=== PATIENT | male | born 1965 | race Caucasian/White ===

== ENCOUNTER 2018-12-01 21:03 | Observation (INO) | payer OTHER ==
--- NOTE | 2018-12-01 21:08 | ED Physician Documentation ---
General Adult - HISTORIAN Historian: patient - HPI Stated Complaint: alcoholism Chief Complaint: General Adult Onset: other (years has been drinking ) Timing: still present Severity: moderate Further Comments: yes (states he drinks whiskey daily. states he was driving to inpt treatment for alcohol and he was drinking whiskey on the way. He has had heart surgery last year.) Last known Well Code/Unknown Code: Unknown - ROS CONST: no problems - PAST HX Past History: AMI, COPD, hypertension Surgeries/Procedures: cardiac bypass Immunizations: UTD Allergies/Adverse Reactions: Allergies Allergy/AdvReac Type Severity Reaction Status Date / Time Penicillins Allergy Hives Verified 12/01/18 22:13 Home Medications: Ambulatory Orders Medication Instructions Recorded Aspirin EC [Ecotrin] 81 mg PO D 12/01/18 Atorvastatin Calcium 40 mg PO HS 12/01/18 Lamotrigine [Lamictal] 100 mg PO D 12/01/18 Metoprolol Tartrate [Lopressor] 25 mg PO D 12/01/18 Pantoprazole Sodium [Protonix] 40 mg PO 0700 12/01/18 Paroxetine HCl 20 mg PO DAILY 12/01/18 - SOCIAL HX Smoking History: cigarettes Alcohol Use: heavy Drug Use: none - FAMILY HX Family History: No - REVIEWED ASSESSMENTS Nursing Assessment Reviewed: Yes Vitals Reviewed: Yes Progress - Progress Progress: 2244: results discussed. Will plan on obs stay for lab and meds - is questioning medical coverage DG 2250: room obtained will hold for lab DG General Adult Physical Exam - PHYSICAL EXAM GENERAL APPEARANCE: no distress EENT: eye inspection normal, no signs of dehydration NECK: normal inspection RESPIRATORY: no resp distress, chest non-tender, breath sounds normal CVS: reg rate & rhythm, heart sounds normal, equal pulses, no murmur ABDOMEN: soft, normal bowel sounds, no distension SKIN: warm/dry, normal color EXTREMITIES: non-tender, normal range of motion, no edema NEURO: oriented X3 Discharge Clincal Impression: Alcohol abuse Condition: Stable Disposition: ADMITTED INPATIENT Decision to Admit: [id number] Date of Decison to Admit: 12/01/18 Decision Time: 22:52
[2018-12-01] MEDS ORDERED: THIAMINE HCL 100 MG, MULTIVIT INFUSN,ADULT 1,VIT K 10 ML, FOLIC ACID 5 MG in 0.9 % SODI... IV ONE (21:16)
[2018-12-01] MEDS ORDERED: THIAMINE HCL 200 MG/2 ML VIAL ONE (21:35)
[2018-12-01] MEDS ORDERED: MULTIVIT INFUSN,ADULT 1,VIT K 10 ML VIAL IV ONE (21:35)
[2018-12-01] MEDS ORDERED: 0.9 % SODIUM CHLORIDE 1,000 ML IV ONE (21:35)
[2018-12-01] MEDS ORDERED: FOLIC ACID 5 MG/1 ML ONE (21:35)
[2018-12-01 21:49] LABS: MEAN CORPUSCULAR HEMOGLOBIN 31.3 pg (28.0-34.0)
[2018-12-01 21:50] LABS: BASOPHILS % 0.4 (0.0-1.5); EOSINOPHILS % 1.7 % (0.0-6.8); MONOCYTES % 5.2 % (0.0-11.0); NEUTROPHILS # 2.8 # k/uL (1.4-7.7)
[2018-12-01 22:17] LABS: eGFR (Non-African) > 60
[2018-12-01] MEDS ORDERED: POTASSIUM CHLORIDE 20 MEQ TABLET.ER PO ONE (22:20)
[2018-12-01] MEDS ORDERED: POTASSIUM CHLORIDE 20 MEQ/NS 1,000 ML IV ONE (22:32)
[2018-12-01] MEDS: POTASSIUM CHLORIDE 20 MEQ/NS 1,000 ML IV SCH (22:49)
[2018-12-01] MEDS ORDERED: LORazepam 1 MG TABLET PO PRN (23:02)
--- NOTE | 2018-12-01 23:20 | History and Physical Report ---
History of Present Illnes - History of Present Illness Reason for Visit: hypokalemia and ETOH History of Present Illness: ETOH and hypokalemia - Past Medical History Cardiac: CAD, AL, Hyperlipidemia Gastrointestinal: GERD Psych: Addictions (ETOH) - Past Surgical History Past Surgical History: CABG - Past Social History Smoke: 1 pack per day Alcohol: Heavy (whiskey ) Drugs: None Lives: With Family Domestic Violence: Negative - Health Maintenance Health Maintenance: Cholesterol Influenza Vaccine: No Pneumonia Vaccine: No Resuscitation Status: Resusciation Status Resuscitation Status Full Code Review of Systems - Review of Systems Constitutional: negative: Fever, Chills, Sweats, Weakness Eyes: negative: pain ENT: negative: Ear Pain Respiratory: negative: Cough, Shortness of Breath Cardiovascular: negative: Chest Pain, Palpitations Gastrointestinal: negative: Nausea, Vomiting Genitourinary: negative: Dysuria Musculoskeletal: negative: Neck Pain Skin: negative: Rash Neurological: Weakness - Medications/Allergies Allergies/Adverse Reactions: Allergies Allergy/AdvReac Type Severity Reaction Status Date / Time Penicillins Allergy Hives Verified 12/01/18 22:13 Home Medications: Home Medications Aspirin EC [Ecotrin] 81 mg PO D 12/01/18 Atorvastatin Calcium 40 mg PO HS 12/01/18 Lamotrigine [Lamictal] 100 mg PO D 12/01/18 Metoprolol Tartrate [Lopressor] 25 mg PO D 12/01/18 Pantoprazole Sodium [Protonix] 40 mg PO 0700 12/01/18 Paroxetine HCl 20 mg PO DAILY 12/01/18 Current Inpatient Medications: Current Inpatient Medications Thiamine HCl 100 mg/ MULTIVIT INFUSN,ADULT 1,VIT K 10 ml/Folic Acid 5 mg/ Sodium Chloride 1,012 mls @ 1,000 drops/hr IV NOW ONE Stop: 12/02/18 12:26 Last Admin: 12/01/18 21:45 Dose: 1,000 drops/hr Potassium Chloride/Sodium Chloride (Potassium 20 Meq/Ns 1000 Ml) 1,000 mls @ 150 mls/hr IV Q10H OSMANY Last Admin: 12/01/18 22:49 Dose: 150 mls/hr Lorazepam (Ativan) 2 mg PO Q2 PRN PRN Reason: Alcohol Withdrawal Exam - Exam Vital Signs: Vital Signs (72 hours) 12/01/18 12/01/18 21:03 23:06 Temperature 97.6 F 98.0 F Pulse Rate [ 73 65 Pulse ox] Respiratory 14 14 Rate Blood Pressure 98/64 102/58 [Right Arm] O2 Sat by Pulse 95 97 Oximetry General: Alert, Oriented to Place, Cooperative HEENT: Atraumatic, PERRLA, Mouth Mucous membr. moist/[place] Neck: Normal Range of Motion. No: Stridor Lungs: Clear to auscultation, Normal air movement, Speaks full Sentences Cardiovascular: Regular rate Abdomen: Normal bowel sounds, No tenderness Integumentary: Normal Extremities: No clubbing Neurological: Other (stubling gait due to ETOH) Psych/Mental Status: Appropriate Affect - Laboratory Results Laboratory Results: Laboratory Results 12/01/18 12/01/18 21:31 21:31 WBC 6.30 RBC 3.91 Hgb 12.2 Hct 36.5 L MCV 94.0 MCH 31.3 MCHC 33.5 RDW 14.0 Plt Count 206 Neut % (Auto) 44.7 Lymph % (Auto) 48.0 [place] % (Auto) 5.2 Eos % (Auto) 1.7 Baso % (Auto) 0.4 Neut # (Auto) 2.8 Lymph # (Auto) 3.0 [place] # (Auto) 0.3 Eos # (Auto) 0.1 Baso # (Auto) 0.0 Sodium 143 Potassium 2.5 L* Chloride 105 Carbon Dioxide 31 H BUN 6 L Creatinine 0.80 Estimated Creat Clear 94 Est GFR ( Amer) > 60 Est GFR (Non-Af Amer) > 60 Glucose 89 Calcium 8.1 L Total Bilirubin 1.0 AST 63 H ALT 25 Alkaline Phosphatase 88 Total Protein 6.6 Albumin 4.0 Ethyl Alcohol 340.8 H VTE Assessment - RISK FACTOR SCORE VTE RISK FACTOR SCORES: AGE 40-60 YEARS - RISK VTE LOW RISK: SCORE OF 1 OR LESS (RISK PROXIMAL DVT 0.4%) NO PROPHYLAXIS NEEDED
[2018-12-01] MEDS ORDERED: NICOTINE 21mg 1 EACH PATCH.TD24 TD ONE (23:50)
[2018-12-02 00:36] VITALS: BMI 22.1
[2018-12-02] MEDS ORDERED: POTASSIUM CHLORIDE 20 MEQ/NS 1,000 ML IV ONE (00:36)
[2018-12-02] MEDS: POTASSIUM CHLORIDE 20 MEQ/NS 1,000 ML IV SCH (00:44)
[2018-12-02] MEDS ORDERED: POTASSIUM CHLORIDE 20 MEQ TABLET.ER ONE (06:18)
[2018-12-02] MEDS ORDERED: POTASSIUM CHLORIDE 20 MEQ TABLET.ER PO SCH (07:00)
[2018-12-02 08:01] LABS: eGFR (Non-African) > 60
[2018-12-02] MEDS ORDERED: [UNRECOGNIZED DRUG - OTHER] IV ONE (08:42)
[2018-12-02] MEDS ORDERED: NICOTINE 21mg 1 EACH PATCH.TD24 TD SCH (09:00)
[2018-12-02 09:36] VITALS: BP 148/90
--- NOTE | 2019-01-06 09:57 | Discharge Summary ---
Discharge Summary - Discharge Sumary History of Present Illness: Hypokalemia ETOH Condition at Discharge: Stable Home Medications: Ambulatory Orders Medication Instructions Recorded Aspirin EC [Ecotrin] 81 mg PO D 12/01/18 Atorvastatin Calcium 40 mg PO HS 12/01/18 Lamotrigine [Lamictal] 100 mg PO D 12/01/18 Metoprolol Tartrate [Lopressor] 25 mg PO D 12/01/18 Pantoprazole Sodium [Protonix] 40 mg PO 0700 12/01/18 Paroxetine HCl 20 mg PO DAILY 12/01/18 Consultations this Visit: None Procedures this Visit: None Allergies/Adverse Reactions: Allergies Allergy/AdvReac Type Severity Reaction Status Date / Time Penicillins Allergy Hives Verified 12/01/18 22:13 Discharge Summary: He is feeling better and is ready to be discharged aware of meds to take at home and follow up DG
== END 2018-12-02 13:20 | disposition short-term general hospital (02) ==
LOC: ED 21:03 → SOUTH 22:52
PROVIDERS: ADMIT Nurse Practitioner Family; ATTEND Nurse Practitioner Family
DX: F10.10 Alcohol abuse, uncomplicated (principal); E87.6 Hypokalemia; F17.210 Nicotine dependence, cigarettes, uncomplicated
CPT/HCPCS: 36415; 80053; 80320; 85025; 96365; 96366; 99283; A9270; G0378; J3411; J3480; J3490; J7030; 99217; G0480; S1016